=== PATIENT | female | born 1985 | race Caucasian/White ===

== ENCOUNTER 2022-06-20 15:49 | Emergency (ER) | payer OTHER ==
[~2022-06-20] VITALS: Ht 160 cm; Wt 86.2 kg
[2022-06-20 16:07] VITALS: BP 126/90
--- NOTE | 2022-06-20 16:17 | NUR ---
[facility]: RIGHT EYE 20/40, LEFT EYE 20/70, BOTH EYES 20/40
[2022-06-20] MEDS ORDERED: IBUPROFEN 800 MG TAB PO ONE (16:50)
[2022-06-20 18:05] LABS: APPEARANCE,URINE SL CLOUDY (CLEAR); BILIRUBIN,URINE NEGATIVE (NEGATIVE); BLOOD, URINE 3+ (NEGATIVE); COLOR,URINE YELLOW (YELLOW); LEUKOCYTE ESTERASE ,URINE TRACE (NEGATIVE); NITRITE, URINE NEGATIVE (NEGATIVE); PH,URINE 5.5 (5.0-9.0); UGLUCOSE NEGATIVE (NEGATIVE)
[2022-06-20 18:47] LABS: RBC,URINE 11-20 (MOD) /HPF (0-5)
[2022-06-20 19:51] VITALS: BP 126/90
--- NOTE | 2022-06-20 19:51 | NUR ---
PATIENT ELOPED FROM FACILITY. DISCHARGE INSTRUCTIONS NOT GIVEN TO PATIENT. MAME SORTO NOTIFIED.
== END 2022-06-20 19:51 | disposition left against medical advice (07) ==
LOC: MED 15:49
DX: R51.9 Headache, unspecified (principal); R22.0 Localized swelling, mass and lump, head; Z79.899 Other long term (current) drug therapy
CPT/HCPCS: 81001; 81025; 87086; 99283

== ENCOUNTER 2022-12-09 05:05 | Emergency (ER) | payer OTHER ==
[~2022-12-09] VITALS: Ht 162.6 cm; Wt 81.6 kg
[2022-12-09 05:11] VITALS: BP 146/89; PULSE 82; RESP 16; TEMP 97.4; O2SAT 99
[2022-12-09] MEDS ORDERED: NACL 0.9% 1,000 ML IV ONE (05:35)
[2022-12-09] MEDS ORDERED: ONDANSETRON 4 MG/2 ML VIAL IVP ONE (05:35)
[2022-12-09] MEDS ORDERED: MORPHINE SULFATE 4 MG/ML SYR IVP ONE (05:35)
[2022-12-09 05:49] LABS: BASOPHILS # (AUTO) 0.1 K/uL (0.00-0.22); EOSINOPHILS # (AUTO) 0.1 K/uL (0-0.4); EOSINOPHILS % (AUTO) 1.9 % (0.0-4.0); HEMATOCRIT 35.3 % (36-48); LYMPHOCYTES # (AUTO) 1.9 K/uL (2.5-16.5); LYMPHOCYTES % (AUTO) 33.8 % (20.5-51.1); MEAN CORPUSCULAR HEMOGLOBIN 30 pg (27-31); MEAN CORPUSCULAR HGB CONC 34 g/dL (33-37); MONOCYTES # (AUTO) 0.5 K/uL (0.8-1.0); MONOCYTES % (AUTO) 8.4 % (1.7-9.3); NEUTROPHILS # (AUTO) 3.1 K/uL (1.8-7.7); NEUTROPHILS % (AUTO) 54.9 % (42.2-75.2); PLATELET COUNT (AUTO) 164 K/uL (140-450); RED BLOOD CELL COUNT(AUTO) 4.06 MIL/uL (4.20-5.40); RED CELL DISTRIBUTION WIDTH 13.2 % (11.6-13.7); WHITE BLOOD COUNT (AUTO) 5.7 K/uL (4.8-10.8)
[2022-12-09 06:10] LABS: ALBUMIN 3.6 g/dL (3.4-5.0); ANION GAP 11.7 (8-16); CALCIUM 8.4 mg/dL (8.5-10.1); CARBON DIOXIDE 25.8 mmol/L (21-32); CREATININE 0.7 mg/dL (0.6-1.3); POTASSIUM 3.5 mmol/L (3.5-5.1); TOTAL BILIRUBIN 0.3 mg/dL (0.0-1.0); TOTAL PROTEIN, SERUM 6.9 g/dL (6.4-8.2)
[2022-12-09 06:44] LABS: BILIRUBIN,URINE NEGATIVE (NEGATIVE); BLOOD, URINE NEGATIVE (NEGATIVE); COLOR,URINE YELLOW (YELLOW); LEUKOCYTE ESTERASE ,URINE TRACE (NEGATIVE); NITRITE, URINE NEGATIVE (NEGATIVE); PROTEIN,URINE NEGATIVE (NEGATIVE); UGLUCOSE NEGATIVE (NEGATIVE)
[2022-12-09 06:53] LABS: RBC,URINE 0-5 /HPF (0-5); WBC,URINE 0-5 /HPF (0-5)
[2022-12-09 06:54] LABS: BACTERIA,URINE FEW /HPF (None Seen); SQUAMOUS EPITHELIAL CELL,UR 4-10 (MOD) /LPF (0-3 (FEW))
[2022-12-09 06:55] LABS: APPEARANCE,URINE SLIGHTLY HAZY (CLEAR)
[2022-12-09] MEDS ORDERED: DICYCLOMINE HCL LIQUID 10 MG/5 ML UDC PO ONE (07:05)
[2022-12-09] MEDS ORDERED: MAGNESIUM HYDROXIDE 2400 MG/30 ML UDC PO ONE (07:05)
[2022-12-09 07:24] VITALS: O2SAT 98
[2022-12-09 07:25] VITALS: BP 133/81; PULSE 78; RESP 18; TEMP 98.5
[2022-12-09] MEDS ORDERED: ACET-8905 PO (07:30)
[2022-12-09] MEDS ORDERED: OMEP40EC24 PO (07:30)
[2022-12-09] MEDS ORDERED: IBUP-2213 PO (07:30)
[2022-12-09] MEDS ORDERED: ONDA8TAB87 PO (07:31)
[2022-12-09 07:50] VITALS: O2SAT 98
== END 2022-12-09 07:51 | disposition home or self-care (01) ==
LOC: MED 05:05
DX: R10.13 Epigastric pain (principal); Z79.899 Other long term (current) drug therapy; Z79.1 Long term (current) use of non-steroidal anti-inflammatories (NSAID)
CPT/HCPCS: 36415; 80053; 81001; 81025; 83690; 85025; 96361; 96374; 96375; 99284; J2270; J2405; J7030